=== PATIENT | female | born 1955 | race Caucasian/White ===

== ENCOUNTER 2024-03-09 13:49 | Observation (INO) | payer MEDICARE, SELFPAY ==
[2024-03-09] VITALS (9 sets, daily range): BP systolic 117–153; BP diastolic 75–113; PULSE 79–102; RESP 13–22; TEMP 35.8–36.8; O2SAT 97–100; BMI 22.8; BMI 21.8
--- NOTE | 2024-03-09 14:23 | EKG12_ITS ---
Test Reason : CP Blood Pressure : / mmHG Vent. Rate : 090 BPM Atrial Rate : 090 BPM P-R Int : 164 ms QRS Dur : 080 ms QT Int : 370 ms P-R-T Axes : 061 009 043 degrees QTc Int : 452 ms Normal sinus rhythm Low voltage QRS Borderline ECG Confirmed by JUDITH LEMUS, TODD ([id number]), make up editor WESLY CEJA ([id number]) on 03/11/2024 8:13:33 AM Referred By: David Brown Confirmed By:TODD WONG MD
--- NOTE | 2024-03-09 15:15 | RAD_ITS ---
INDICATION: chest pain EXAMINATION/TECHNIQUE: X-RAY - XR Chest 1 View COMPARISON: No relevant prior comparison study available FINDINGS: LINES/DEVICES: None. LUNGS: No consolidation, edema or effusion. No pneumothorax. MEDIASTINUM AND CARDIOVASCULAR STRUCTURES: Cardiac silhouette not enlarged. Central airways and mediastinal contour are unremarkable. BONES AND SOFT TISSUES: Unremarkable. RAD/Chest 1 View (Portable) IMPRESSION: No radiographic evidence of acute cardiopulmonary disease. Electronically Signed: Thom Scott MD at 15:29 EDT ,
[2024-03-09] MEDS: Morphine 4 MG/ML Syringe 2 MG IV (15:17)
[2024-03-09] MEDS: Ondansetron 4 MG/2 ML Vial IV (15:17)
[2024-03-09 15:20] LABS: Absolute Lymphocyte Count 1.17 X10^3/uL (0.83-4.51); Absolute Neutrophil Count 7.4 X10^3/uL (2.0-7.7); Basophil# 0.05 X10^3/uL; Basophil% 0.5 % (0-1); Eosinophil# 0.09 X10^3/uL; Hematocrit 36.6 % (37-47); Hemoglobin 11.5 g/dL (12.0-15.0); Lymphocyte # 1.17 X10^3/ul (0.83-4.51); Lymphocyte % 12.7 % (19-41); Mean Corp Hgb Conc 31.4 g/dL (32-36); Mean Corpuscular Hgb 27.8 pg (27.0-32.0); Mean Corpuscular Volume 88.4 fL (81-99); Mean Platelet Vol. 8.6 fl (6.2-12.0); Monocyte# 0.47 X10^3/uL; Monocyte% 5.1 % (0-10); NRBC Flagged by Analyzer 0 % (0-5); Neutrophil # 7.43 X10^3/uL (2.7-7.7); Neutrophil % 80.4 % (47-70); Platelet Count 171 K/mm3 (150-450); RBC Distribution Width CV 14.4 % (11.6-14.6); RBC Distribution Width SD 46.6 fl (35.1-43.9); Red Blood Count 4.14 M/mm3 (4.2-5.4); White Blood Count 9.2 K/mm3 (4.4-11.0)
[2024-03-09 15:39] LABS: Anion Gap 6 (5-15); BUN 17 mg/dL (7-18); BUN/Creat Ratio 15.7 RATIO (10-20); Calcium,Total 9.1 mg/dL (8.5-10.1); Chloride 109 mmol/L (98-107); Creatinine, Serum 1.08 mg/dL (0.55-1.02); EST Glomerular Filtration Rate 54 mL/min (>60); Est Glom Filt Rate - Afr Amer 65 mL/min (>60); Estimated Creatinine Clearance 49.83 ml/min; Glucose 158 mg/dL (74-106); Potassium 4.1 mmol/L (3.5-5.1); Sodium Level 140 mmol/L (136-145); Troponin-I HS (w/2H Reflex) 4 pg/mL (3.0-54.0)
[2024-03-09] MEDS: Morphine 2 MG/ML Syringe IV (15:52)
--- NOTE | 2024-03-09 16:03 | CT_ITS ---
INDICATION: Dissection/PE, chest pain EXAMINATION: CTA CHEST, ABDOMEN AND PELVIS WITH CONTRAST - TECHNIQUE: A CTA of the chest, abdomen, and pelvis is obtained with sagittal and coronal reconstructed MIP views. Three-dimensional surface rendered sequence of the thoracic and abdominal aorta was obtained. The protocol utilizes one or more of the following dose reduction techniques: automated exposure control, adjustment of mA and/or kV according to patient size,and/or use of iterative reconstruction technique. 100 mL of Isovue-370. Oral contrast: None. RADIATION DOSAGE (If Supplied By Facility): CTDIvol = ( 11.37 ) mGy, DLP = ( 759.45 ) mGycm COMPARISON: No relevant prior comparison study available FINDINGS: CT CHEST: THORACIC AORTA: No atheromatous disease, no aneurysmal changes or dissection. ABDOMINAL AORTA: No aneurysm or dissection. No significant atheromatous disease. The iliac arteries are unremarkable. LUNGS: There is minimal lower lobe dependent atelectasis. No effusions or pneumothorax. MEDIASTINUM: The thyroid gland is normal. No mediastinal or hilar adenopathy. HEART: Heart is normal size. There is a pericardial effusion measuring up to 13.5 mm in diameter. No coronary artery calcifications. CT ABDOMEN AND PELVIS: LIVER: The liver enhances homogeneously. No masses identified. GALLBLADDER: There are surgical clips within the gallbladder fossa consistent with prior old appendectomy. SPLEEN: Normal. PANCREAS: No masses or inflammation. ADRENAL GLANDS: Normal. KIDNEYS AND URETERS: The kidneys both enhance appropriately. There are normal size and shape. No hydronephrosis or nephrolithiasis. No renal masses or cysts. STOMACH: Normal. SMALL BOWEL: No abnormal distention of the small bowel. MESENTERY: No mesenteric inflammation. No ascites. COLON: There are diverticula arising from the colon The colon otherwise is normal. There is a large fatty ileocecal valve. APPENDIX: There is nonvisualization of the appendix. IVC: Normal. RETROPERITONEUM: No retroperitoneal lymphadenopathy. PELVIC STRUCTURES: Normal bladder. SOFT TISSUES ABDOMEN: The anterior abdominal wall is normal. SOFT TISSUE CHEST: The extrathoracic soft tissues are normal. BONES: There are degenerative changes of the thoracic and lumbar spine. CT/CTA Chst, Abd, Pel W and/or WO IMPRESSION: No evidence of an aortic dissection or pulmonary embolus. Pericardial effusion. Colonic diverticulosis. Electronically Signed: Porsche Herrera MD at 16:43 EDT ,
[2024-03-09 16:04] LABS: D-Dimer Quantitative (DVT/PE) 0.33 FEU/ug/m (0.27-0.49)
[2024-03-09 16:10] LABS: International Normalized Ratio 2.3; Prothrombin Time (Protime)PT. 25.4 SECONDS (11.7-14.9)
[2024-03-09 16:11] LABS: Partial Thromboplast Time 33.2 Seconds (24.1-36.2)
[2024-03-09] MEDS: 0.9% Normal Saline (1000mL) 1,000 ML 999 ML IV (16:39)
--- NOTE | 2024-03-09 17:03 | EDS_ITS ---
HPI History of Present Illness Chief Complaint: Chest Pain Narrative Narrative: Chief complaint and HPI: Chest pain. 68-year-old female with history of PE on Eliquis presents for evaluation of chest pain. Patient states yesterday she developed some midsternal chest pain that resolved. She states she woke up and chest pain had reoccurred. She told nursing that it was sharp and radiated to the back however to me she states it is midsternal only and described as pressure. She does describe it as severe and a 10 out of 10. Pain does not change with position. She states that she has had pain like this in the past. She states she was previously admitted to [facility] for this and she believes had a cardiac catheterization at that time. She does not remember how long ago that was. She states as far as she knows the cardiac cath was negative. She does not follow with cardiology. Pain does not radiate down her arms or into the jaw. She denies any fever, chills, URI symptoms, shortness of breath, abdominal pain, nausea, vomiting, dysuria. Patient was given 2 nitro by EMS without improvement in her symptoms. She is allergic to aspirin per her report. Patient states she has not missed any doses of her Eliquis. Denies recent trauma or surgery. Not on any hormonal therapy. She denies any bilateral lower extremity swelling. No history of malignancy or travel. Review of systems: See HPI Medications: As listed on the chart Allergies: As listed on the chart PFSH: Per chart Vital signs: As listed on the chart. Reviewed. Physical exam: Gen: A&O x3, NAD despite her pain, very flat affect Head: Normocephalic, atraumatic Eyes: No sclera icterus, conjunctiva clear, PERRL, EOMI ENT: Moist mucous membranes Neck: Trachea midline, No JVD, No carotid bruit CV: RRR, no murmurs, no peripheral edema, chest pain nonreproducible Resp: Lungs CTA BL, no w/r/c GI: Abd soft, non-distended, non-tender, no r/r/g Musc: Full ROM, no deformity Skin: Warm, dry Neuro: Alert, oriented, grossly intact, sensation intact Psych: Cooperative EKG: Interpreted by me/EM physician: EKG shows normal sinus rhythm with a heart rate of 98. No acute ischemic changes. Diagnostic: Interpreted by me/EM physician: 1 view chest x-ray without any pneumonia or effusion. No cardiomegaly. No enlargement of the mediastinum. No pneumothorax. [facility] Medical History (Updated 03/09/24 @ 14:00 by Julienne Morales) Hyperlipidemia Muscle weakness Depression Atherosclerotic heart disease of [place] coronary artery without angina pectoris Auditory hallucination Visual hallucination Schizoaffective disorder, bipolar type Psychotic disorder Anxiety GERD (gastroesophageal reflux disease) Allergy/AdvReac Type Severity Reaction Status Date / Time acetaminophen (From Vicodin) Allergy Other Verified 03/09/24 13:53 hydrocodone (From Vicodin) Allergy Other Verified 03/09/24 13:53 lidocaine Allergy Hives Verified 03/09/24 13:53 meperidine (From Demerol) Allergy Hives Verified 03/09/24 13:52 Opioids - Morphine Analogues Allergy Chest Verified 03/09/24 13:53 tightness Social History Smoking Status: Never smoker EXAM Physical Exam Const Vital Signs: 03/09/24 13:54 03/09/24 13:57 03/09/24 14:45 Temperature 96.5 F L Temperature Source Temporal Pulse Rate 91 102 H Respiratory Rate 14 13 Respiratory Effort Normal Non-Labored Blood Pressure 117/75 127/113 H Blood Pressure Mean 89 120 Pulse Ox 99 97 Oxygen Delivery Method Room Air 03/09/24 15:57 03/09/24 16:00 03/09/24 17:00 Temperature Temperature Source Pulse Rate 81 84 100 Respiratory Rate 14 22 H 16 Respiratory Effort Blood Pressure 137/78 H 153/82 H Blood Pressure Mean 95 102 Pulse Ox 98 Oxygen Delivery Method MDM MDM MDM Narrative Medical decision making narrative: 68-year-old female with history of PE on Eliquis presents for evaluation of chest pain. On presentation, patient is in no acute distress despite her reported severe pain. Patient without tachycardia, hypotension, hypoxia. Differential diagnosis includes but is not limited to ACS, CHF, electrolyte abnormality, pleurisy, musculoskeletal strain. I suspect less likely PE given that she has been on her Eliquis. Less likely pneumothorax and pericarditis. Low risk for aortic dissection per ADD-RS. Morphine given for pain. Will hold off on aspirin given patient's allergy. Cardiac workup ordered including D- dimer. EKG without any acute abnormality. Chest x-ray reviewed see above. CBC without leukocytosis. Patient has anemia with hemoglobin 11.5. INR 2.3. BMP shows mild renal insufficiency. I do not have previous labs to compare to. I did do a chart review on our system as well as get on [facility] and again no records available. Troponin unremarkable. BNP unremarkable. D-dimer unremarkable. On reevaluation, patient is still complaining out of 10 out of 10 chest pain. She describes it as midsternal. She now describes as sharp and radiating to her back given these findings cannot fully rule out aortic dissection. Morphine ordered. CTA ordered to assess for aortic dissection/PE. On presentation she is in no acute distress on presentation. CTA shows no ev idence of aortic dissection or PE. She does have a 13.5 mm pericardial effusion. I do not have a clear etiology for this. Repeat EKG again is unremarkable. Cardiology was consulted and patient was discussed with Dr. Watkins. He recommends ESR and admission for echocardiogram for better evaluation of possible pericardial effusion given patient is still having chest pain. Delta troponin and ESR currently pending. Patient was updated of all the results and confirmed understanding of the plan. Hospitalist service Dr. Baca was consulted and patient was discussed. He excepted admission. Impression: 1. Chest pain 2. Pericardial effusion 3. Anemia 4. Renal insufficiency Lab Data Labs: Laboratory Results - last 24 hr 03/09/24 03/09/24 15:10 15:40 WBC 9.2 RBC 4.14 L Hgb 11.5 L Hct 36.6 L MCV 88.4 MCH 27.8 MCHC 31.4 L RDW Std Deviation 46.6 H RDW Coeff of Reinaldo 14.4 Plt Count 171 MPV 8.6 Immature Gran % (Auto) 0.300 Neut % (Auto) 80.4 H Lymph % (Auto) 12.7 L [place] % (Auto) 5.1 Eos % (Auto) 1.0 Baso % (Auto) 0.5 Absolute Neuts (auto) 7.4 Absolute Lymphs (auto) 1.17 Nucleated RBC % 0 PT Cancelled 25.4 H INR Cancelled 2.3 APTT Cancelled 33.2 D-Dimer Quant (PE/DVT) Cancelled 0.33 Sodium 140 Potassium 4.1 Chloride 109 H Carbon Dioxide 25.0 Anion Gap 6 BUN 17 Creatinine 1.08 H Estim Creat Clear Calc 49.83 Est GFR (MDRD) Af Amer 65 Est GFR (MDRD) Non-Af 54 L BUN/Creatinine Ratio 15.7 Glucose 158 H Calcium 9.1 Troponin I High Sens 4 B-Natriuretic Peptide 21.0 Radiography Diagnostic Testing: Clinical Impression(s) from Imaging Studies Chest X-Ray 03/09/24 15:15 IMPRESSION: No radiographic evidence of acute cardiopulmonary disease. Electronically Signed: Thom Scott MD at 15:29 EDT , Chest/Abdomen/Pelvis CTA 03/09/24 16:03 IMPRESSION: No evidence of an aortic dissection or pulmonary embolus. Pericardial effusion. Colonic diverticulosis. Electronically Signed: Porsche Herrera MD at 16:43 EDT , Discharge Plan Triage Chief Complaint: Chest Pain ED Provider: David Brown Dx/Rx/DC Orders Primary Care Provider: [facility] Referrals: Jamila Castellon MD [Med Staff - Human Resources Department Supervisor] - Print Language: Vietnamese
[2024-03-09 17:18] LABS: Reflex Troponin-HS? (from REC) Y
[2024-03-09 18:18] LABS: Troponin-I HS 4 pg/mL (3.0-54.0)
--- NOTE | 2024-03-09 18:48 | PCM.HP.STD ---
HPI - General General Date of Admission: 03/09/24 HPI Narrative JESSICA DENNIS, is a 68 F who presents to the hospital complaining of chest pain that is progressively gotten worse over the last couple days. She says it goes straight to her back and is substernal midline. There is no radiation to her jaw or her arm. Initial troponin is normal at 4 and EKG is nonischemic however given the radiation of her pain into her back a CTA of the chest was done which was unremarkable and did not demonstrate any kind of dissection. Delta troponin is also negative at 4 and the CTA I had also demonstrated a pericardial effusion though she denies any recent viral illness and she states that nothing makes the pain better or worse. She does not feel that leaning forward makes the pain any better. No lightheadedness but she does endorse some mild shortness of breath though she is not hypoxic. COUNT INCLUDES THE [facility] Medical History (Updated 03/09/24 @ 18:[address] Jose Baca MD) Hyperlipidemia Muscle weakness Depression Atherosclerotic heart disease of [place] coronary artery without angina pectoris Auditory hallucination Visual hallucination Schizoaffective disorder, bipolar type Psychotic disorder Anxiety GERD (gastroesophageal reflux disease) Home Medications ?Medication ?Instructions ?Recorded ?Last Taken ?Type amitriptyline 50 mg tablet 50 - 100 mg PO QHS 03/09/24 03/08/24 History buspirone 10 mg tablet 10 mg PO BID anxiety 03/09/24 03/09/24 History rivaroxaban 20 mg tablet (Xarelto) 20 mg PO QPM 03/09/24 03/08/24 History ropinirole 3 mg tablet 3 mg PO QHS 03/09/24 03/08/24 History Allergy/AdvReac Type Severity Reaction Status Date / Time acetaminophen (From Vicodin) Allergy Other Verified 03/09/24 13:53 hydrocodone (From Vicodin) Allergy Other Verified 03/09/24 13:53 lidocaine Allergy Hives Verified 03/09/24 13:53 meperidine (From Demerol) Allergy Hives Verified 03/09/24 13:52 Opioids - Morphine Analogues Allergy Chest Verified 03/09/24 13:53 tightness Family History (Updated 03/09/24 @ 18:[address] Jose Baca MD) Other Heart disease Social History Smoking Status: Never smoker ROS Constitutional Constitutional: Denies chills, fatigue, fever(s) or malaise Eyes Eyes: Denies blurry vision ENT HEENT: Denies headache(s) or nasal discharge Cardiovascular Cardiovascular: Reports chest pain; Denies dyspnea on exertion or syncope Respiratory/Chest Respiratory/Chest: Reports shortness of breath at rest and shortness of breath with exertion; Denies cough Gastrointestinal Gastrointestinal: Denies constipation, diarrhea, nausea or vomiting Genitourinary Genitourinary: Denies dysuria Neurologic Neurologic: Denies focal weakness, numbness or tremor(s) Psychiatric Psychiatric: Denies anxiety or depression Vital Signs Vital Signs Vital Signs: 03/09/24 13:54 03/09/24 13:57 03/09/24 14:45 Temperature 96.5 F L Temperature Source Temporal Pulse Rate 91 102 H Respiratory Rate 14 13 Respiratory Effort Normal Non-Labored Blood Pressure 117/75 127/113 H Blood Pressure Mean 89 120 Pulse Ox 99 97 Oxygen Delivery Method Room Air 03/09/24 15:57 03/09/24 16:00 03/09/24 17:00 Temperature Temperature Source Pulse Rate 81 84 100 Respiratory Rate 14 22 H 16 Respiratory Effort Blood Pressure 137/78 H 153/82 H Blood Pressure Mean 95 102 Pulse Ox 98 Oxygen Delivery Method 03/09/24 18:00 03/09/24 18:03 Temperature 96.5 F L Temperature Source Pulse Rate 101 H 100 Respiratory Rate 18 14 Respiratory Effort Blood Pressure 138/82 H Blood Pressure Mean 100 Pulse Ox 98 98 Oxygen Delivery Method Weight Weight: 146 lb 2.664 oz Body Mass Index (BMI) 22.8 Physical Exam Narrative General: Alert, Oriented x3, Cooperative, No apparent distress HEENT: Atraumatic, PERRLA, EOMI, Normocephalic Oral: Moist Mucosa Neck: Supple, No JVD Lungs: Diminished, Normal air movement, No rhonchi, No wheeze, No rales Cardiovascular: Regular rate, Regular Rhythm, Normal S1, Normal S2, No murmurs Abdomen: Soft, Non Tender, Non-Distended, No Hepato-splenomegaly Extremities: No edema, Capillary Refill Less than 3 Seconds Skin: No rashes, No breakdown Musculoskeletal: No Tenderness to Palpation of Joints or Extremities Neurological: No focal neurological deficits, Motor Exam 5/5 strength throughout, Sensory exam intact to light touch and pain Psych/Mental Status: Flat Results Lab / Micro Data 03/09/24 15:10 03/09/24 15:10 Labs: Laboratory Results - last 24 hr 03/09/24 15:10: WBC 9.2, RBC 4.14 L, Hgb 11.5 L, Hct 36.6 L, MCV 88.4, MCH 27.8, MCHC 31.4 L, RDW Std Deviation 46.6 H, RDW Coeff of Reinaldo 14.4, Plt Count 171, MPV 8.6, Immature Gran % (Auto) 0.300, Neut % (Auto) 80.4 H, Lymph % (Auto) 12.7 L, [place] % (Auto) 5.1, Eos % (Auto) 1.0, Baso % (Auto) 0.5, Absolute Neuts (auto) 7.4, Absolute Lymphs (auto) 1.17, Nucleated RBC % 0, ESR Cancelled, PT Cancelled, INR Cancelled, APTT Cancelled, D-Dimer Quant (PE/DVT) Cancelled, Sodium 140, Potassium 4.1, Chloride 109 H, Carbon Dioxide 25.0, Anion Gap 6, BUN 17, Creatinine 1.08 H, Estim Creat Clear Calc 49.83, Est GFR (MDRD) Af Amer 65, Est GFR (MDRD) Non-Af 54 L, BUN/Creatinine Ratio 15.7, Glucose 158 H, Calcium 9.1, Troponin I High Sens 4, B-Natriuretic Peptide 21.0 03/09/24 15:40: PT 25.4 H, INR 2.3, APTT 33.2, D-Dimer Quant (PE/DVT) 0.33 03/09/24 17:30: Troponin I High Sens 4 Imaging Radiology Impression Chest X-Ray 03/09/24 15:15 IMPRESSION: No radiographic evidence of acute cardiopulmonary disease. Electronically Signed: Thom Scott MD at 15:29 EDT , Chest/Abdomen/Pelvis CTA 03/09/24 16:03 IMPRESSION: No evidence of an aortic dissection or pulmonary embolus. Pericardial effusion. Colonic diverticulosis. Electronically Signed: Porsche Herrera MD at 16:43 EDT , Assessment & Plan Assessment/Plan (1) Chest pain: PLAN: Plan 1. Chest pain ? Unclear as to the etiology at this time however CTA demonstrates pericardial effusion ? EKG is nonischemic with negative delta troponin though there is family history of heart disease. ? Will obtain an echocardiogram however her heart score is only 3 so a stress test has not been ordered ? An ESR is pending 2. 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 Continue with Xarelto 3. Schizoaffective disorder bipolar type with history of hallucinations ? She is on amitriptyline as well as BuSpar ? She also thought that she may have been on Seroquel ? She does have a very flat affect which given her past psychiatric issues is likely medication related DVT: Xarelto 75 minutes was spent on direct patient care, including documentation as well as chart review and collaboration with colleagues Charges/Coding Visit Charges Inpatient E&M: 35780 Init Hosp L3
[2024-03-09 19:16] LABS: Erythrocyte Sedimentation Rate 3 mm/hr (0-30)
--- NOTE | 2024-03-09 19:34 | ECHOD_ITS ---
Reason For Study: Pericardial effusion Procedure This was a 2D Doppler, Color Flow transthoracic echocardiogram. Exam performed portable in patient room. Left Ventricle Normal LV size. The estimated ejection fraction is 70 %. No evidence for diastolic dysfunction. No regional wall motion abnormalities noted. Right Ventricle Normal RV size. Normal systolic function. Atria The left and right atria are normal. No doppler evidence for ASD. Mitral Valve There is mild mitral annular calcification. There is no mitral valve stenosis. No mitral valve insufficiency. Tricuspid Valve There is no tricuspid stenosis. Trivial tricuspid valve insufficiency. Pulmonary artery systolic pressure is 25 mmHg. Aortic Valve Trisinus/trileaflet aortic valve. There is no aortic stenosis. Trivial aortic valve insufficiency. Pulmonic Valve There is no pulmonic valvular stenosis. No pulmonic valve insufficiency. Great Vessels Normal aortic root. Pericardium/Pleural Moderate pericardial effusion. There are no echocardiographic indications of cardiac tamponade. Fibrinous strands. MMode/2D Measurements & Calculations LVIDd: 3.5 cm IVSd: 1.0 cm Ao root diam: 2.8 cm LVIDs: 1.9 cm LVPWd: 0.97 cm RVDd: 3.2 cm FS: 46.2 % LAV(MOD-bp): 35.4 ml LVAd ap4: 21.3 cm2 SV(MOD-sp4): 34.0 ml LAV(MOD-bp) Indexed: 20.0 ml/m2 LVLd ap4: 7.5 cm LAV(MOD-sp2): 24.8 ml EDV(MOD-sp4): 49.3 ml LAV(MOD-sp4): 47.8 ml EDV(sp4-el): 50.9 ml LVAs ap4: 9.8 cm2 LVLs ap4: 5.8 cm ESV(MOD-sp4): 15.3 ml ESV(sp4-el): 14.3 ml EF(MOD-sp4): 69.0 % EF(sp4-el): 71.9 % SV(sp4-el): 36.6 ml LA A4 area: 17.8 cm2 LA dimension(2D): 3.0 cm RA A4 area: 11.5 cm2 TAPSE: 2.0 cm Time Measurements MV dec time: 0.27 sec Doppler Measurements & Calculations MV E max luigi: 86.8 cm/sec Lat Peak E' Luigi: 8.0 cm/sec Med Peak E' Luigi: 6.5 cm/sec MV A max luigi: 119.0 cm/sec E/E' lat: 10.8 E/E' med: 13.3 MV E/A: 0.73 Ao V2 max: 144.6 cm/sec LV V1 max: 111.5 cm/sec MV dec slope: 321.5 cm/sec2 Ao max P.4 mmHg LV V1 max P.0 mmHg Ao V2 mean: 96.1 cm/sec LV V1 mean P.9 mmHg Ao mean P.2 mmHg LV V1 mean: 79.4 cm/sec Ao V2 VTI: 27.8 cm LV V1 VTI: 22.7 cm AV (velocity ratio): 0.82 PA V2 max: 87.1 cm/sec TR max luigi: 220.9 cm/sec TR max P.5 mmHg ECHO/Echo Complete Interpretation Summary The estimated ejection fraction is 70 %. No evidence for diastolic dysfunction. Trivial aortic valve insufficiency. Moderate pericardial effusion. Echodensity in the pericardial effusion is suggestive of hemorrhagic effusion Ordering Physician: Jose Baca Referring Physician: David Brown Performed By: Makayla Taylor RDCS
[2024-03-09] MEDS: Rivaroxaban 20 MG Tablet PO (20:37)
[2024-03-09] MEDS: busPIRone 5 MG Tablet 10 MG PO (20:39)
[2024-03-09] MEDS: Pramipexole Di-HCl 0.5 MG Tablet 1.5 MG PO (20:39)
[2024-03-09] MEDS: Amitriptyline 25 MG Tablet PO (20:40)
[2024-03-09] MEDS: proMETHazine 25 MG/ML Syringe 12.5 MG IM (23:49)
[2024-03-09] MEDS: Ketorolac 15 MG/ML Vial IV (23:49)
[2024-03-10 00:14] LABS: Troponin-I HS 5 pg/mL (3.0-54.0)
[2024-03-10 01:05] VITALS: BP 141/76; PULSE 84; RESP 16; TEMP 36.7; O2SAT 97
--- NOTE | 2024-03-10 03:43 | NURSING ---
PT AWAKE, C/O CP AGAIN 03/07, WILL NOTIFY THE HOSPITALIST
[2024-03-10] MEDS: Mag /Aluminum/Simeth WCH UDC 30 ML ORAL.SUSP PO (06:05)
[2024-03-10] MEDS: Lidocaine 2% Viscous15 ML UDC 15 ML PO (06:05)
--- NOTE | 2024-03-10 08:13 | PCM.PN.HOSP ---
Reason for Visit Reason for Visit: Diagnoses Chest pain, unspecified (03/09/24) Objective Data Objective Data Vital Signs: Vital Signs Temp Pulse Resp BP Pulse Ox O2 Del Method 98.1 F 84 16 141/76 H 97 Room Air 03/10/24 01:05 03/10/24 01:05 03/10/24 01:05 03/10/24 01:05 03/10/24 01:05 03/10/24 01:05 Oxygen Delivery Method Room Air Weight: 139 lb 5.314 oz Body Mass Index (BMI) 21.8 Intake & Output: Intake and Output for Last 24 Hours 03/08/24 03/09/24 03/10/24 23:59 23:59 23:59 Intake Total 1000 / 1200 200 / 200 Balance 1000 / 1200 200 / 200 Lab / Micro Data 03/10/24 09:15 03/10/24 09:15 Labs: Laboratory Results - last 24 hr 03/09/24 15:10: WBC 9.2, RBC 4.14 L, Hgb 11.5 L, Hct 36.6 L, MCV 88.4, MCH 27.8, MCHC 31.4 L, RDW Std Deviation 46.6 H, RDW Coeff of Reinaldo 14.4, Plt Count 171, MPV 8.6, Immature Gran % (Auto) 0.300, Neut % (Auto) 80.4 H, Lymph % (Auto) 12.7 L, [place] % (Auto) 5.1, Eos % (Auto) 1.0, Baso % (Auto) 0.5, Absolute Neuts (auto) 7.4, Absolute Lymphs (auto) 1.17, Nucleated RBC % 0, ESR Cancelled, PT Cancelled, INR Cancelled, APTT Cancelled, D-Dimer Quant (PE/DVT) Cancelled, Sodium 140, Potassium 4.1, Chloride 109 H, Carbon Dioxide 25.0, Anion Gap 6, BUN 17, Creatinine 1.08 H, Estim Creat Clear Calc 49.83, Est GFR (MDRD) Af Amer 65, Est GFR (MDRD) Non-Af 54 L, BUN/Creatinine Ratio 15.7, Glucose 158 H, Calcium 9.1, Troponin I High Sens 4, B-Natriuretic Peptide 21.0 03/09/24 15:40: PT 25.4 H, INR 2.3, APTT 33.2, D-Dimer Quant (PE/DVT) 0.33 03/09/24 17:30: Troponin I High Sens 4 03/09/24 17:45: ESR 3 03/09/24 23:50: Troponin I High Sens 5 Radiography Diagnostic Testing: Radiology Impression Chest X-Ray 03/09/24 15:15 IMPRESSION: No radiographic evidence of acute cardiopulmonary disease. Electronically Signed: Thom Scott MD at 15:29 EDT , Chest/Abdomen/Pelvis CTA 03/09/24 16:03 IMPRESSION: No evidence of an aortic dissection or pulmonary embolus. Pericardial effusion. Colonic diverticulosis. Electronically Signed: Porsche Herrera MD at 16:43 EDT , Assessment & Plan Assessment/Plan (1) Chest pain: PLAN: Plan 68-year-old female was admitted with chest pain, 10/10 intensity started on day of admission with radiation to back. Admitted from SNF through ED. 1. Atypical chest pain, unclear etiology ? Unclear as to the etiology at this time however CTA demonstrates pericardial effusion, 13 mm ? EKG is nonischemic with negative delta troponin though there is family history of heart disease. ? 2D echo reported pericardial effusion but no tamponade features. Plant Equipment Engineer consulted. He discussed with other reforestation worker who does not think patient had hemorrhagic pericardial effusion as cannot say from increased density. Patient on Xarelto which is discontinued. Did not have rheumatological disease. ? An ESR is 3. 2. 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 Xarelto discontinued 3. Schizoaffective disorder bipolar type with history of hallucinations ? She is on amitriptyline as well as BuSpar ? She also thought that she may have been on Seroquel ? She does have a very flat affect which given her past psychiatric issues is likely medication related DVT: B/L SCD
[2024-03-10 09:00] VITALS: BP 155/90; PULSE 91; RESP 16; TEMP 36.7; O2SAT 98
[2024-03-10] MEDS: busPIRone 5 MG Tablet 10 MG PO (09:08)
--- NOTE | 2024-03-10 09:27 | CASEMGMT ---
Patient is from [facility]. SW sent updates to [facility] via [facility]. SW also inquired if patient will need a pre-cert to return. Await response. Kyalie DURAN
[2024-03-10 09:29] LABS: Absolute Lymphocyte Count 1.38 X10^3/uL (0.83-4.51); Absolute Neutrophil Count 4.7 X10^3/uL (2.0-7.7); Basophil# 0.06 X10^3/uL; Basophil% 0.9 % (0-1); Eosinophil# 0.16 X10^3/uL; Eosinophils% 2.4 % (0-5); Hematocrit 37.9 % (37-47); Hemoglobin 12.3 g/dL (12.0-15.0); Lymphocyte # 1.38 X10^3/ul (0.83-4.51); Lymphocyte % 20.8 % (19-41); Mean Corp Hgb Conc 32.5 g/dL (32-36); Mean Corpuscular Hgb 27.9 pg (27.0-32.0); Mean Corpuscular Volume 85.9 fL (81-99); Mean Platelet Vol. 8.6 fl (6.2-12.0); Monocyte% 4.5 % (0-10); NRBC Flagged by Analyzer 0 % (0-5); Neutrophil # 4.73 X10^3/uL (2.7-7.7); Neutrophil % 71.1 % (47-70); Platelet Count 225 K/mm3 (150-450); RBC Distribution Width CV 14.2 % (11.6-14.6); Red Blood Count 4.41 M/mm3 (4.2-5.4); White Blood Count 6.7 K/mm3 (4.4-11.0)
[2024-03-10 09:38] LABS: Anion Gap 7 (5-15); BUN 12 mg/dL (7-18); BUN/Creat Ratio 12.9 RATIO (10-20); Calcium,Total 8.9 mg/dL (8.5-10.1); Chloride 110 mmol/L (98-107); Creatinine, Serum 0.93 mg/dL (0.55-1.02); EST Glomerular Filtration Rate 64 mL/min (>60); Est Glom Filt Rate - Afr Amer 78 mL/min (>60); Estimated Creatinine Clearance 57.86 ml/min; Glucose 119 mg/dL (74-106); Potassium 3.7 mmol/L (3.5-5.1); Sodium Level 141 mmol/L (136-145)
[2024-03-10] MEDS: Polyethylene Glycol 3350 17 GM PACKET PO (10:20)
[2024-03-10] MEDS: Senna/Docusate Sodium 1 Tablet 2 TABLET PO (10:20)
--- NOTE | 2024-03-10 10:38 | CASEMGMT ---
No pre-cert is needed for patient to return to [facility]. Plan: d/c back to [facility] behavioral unit. Kaylie Borrego MSW RENEE
[2024-03-10] MEDS: Acetaminophen 500 MG Tablet 1000 MG PO (11:31)
[2024-03-10] MEDS: Ondansetron 4 MG/2 ML Vial IV (13:43)
[2024-03-10] MEDS: FLU VACCINE **HIGH DOSE** TV 24-25 180 MCG/0.5 ML SYRINGE IM (13:46)
--- NOTE | 2024-03-10 15:16 | PCM.CONS.C ---
Assessment & Plan Assessment/Plan (1) Chest pain: QUALIFIERS: Chest pain type: unspecified Qualified Code(s): R07.9 - Chest pain, unspecified PLAN: The patient's chest discomfort does not appear to be cardiac. Her cardiac enzymes are negative her EKG shows no acute ischemic changes and the symptoms are not consistent with angina. Her symptoms are pleuritic in nature. Her sed rate is 3 her BNP is normal CT scan was negative for any pulmonary emboli or dissection. Her physical exam is consistent with bowel sounds heard up into the chest. There was no hiatal hernia documented on her CT of the abdomen and thorax. On the CT there was no coronary calcification documented. This also points against any significant coronary disease. (2) Pericardial effusion: PLAN: Patient's echocardiogram showed a moderate pericardial effusion without any evidence of tamponade. There were strands noted within the effusion. There was no evidence of acute inflammatory issues with the ESR of 3. The patient has been on Xarelto since 2018 due to a pulmonary embolus and DVTs related to the extensive abdominal surgical intervention. I would recommend that Xarelto be discontinued and we reevaluate with a limited echocardiogram in 1 month. She can then be followed up in our office at the [facility] to review the echocardiogram and decide on long-term management of the Xarelto. (3) Psychotic disorder: QUALIFIERS: Psychosis type: schizoaffective disorder Schizoaffective disorder type: unspecified Qualified Code(s): F25.9 - Schizoaffective disorder, unspecified PLAN: During the patient's hospitalization she is told different historical narratives. She actually told me that she lived at home and was ambulatory. Actually she lives in an extended care facility and was transferred here from that extended care facility. This raises the question of how trustworthy her answers concerning her past medical history are. However, given the pericardial effusion I would recommend we discontinue the Xarelto I went over with her what to monitor for a possible DVT recurrence. Will reevaluate her in 1 month in the office with an echocardiogram. Will then follow-up in the office for reevaluation of decision on long-term Xarelto therapy. PLAN: Plan 1. Recommend DC Xarelto given the history as noted above. 2. Repeat limited echo in 1 month to reevaluate pericardial effusion. 3. Patient should be monitored for recurrent DVT and if it recurs Xarelto should be reinstituted. 4. From a cardiovascular standpoint the patient can be discharged in the hospital. 5. Patient will follow-up in the [facility] office in 6 weeks. At that time we will make a decision concerning long-term Xarelto therapy. HPI Consult Data Date of Consult: 03/10/24 HPI Narrative Reason for Consultation: Abnormal 2D echo HPI Narrative: JESSICA DENNIS, is a 68 F who presents with chest pain from [facility]. Patient reports that she been having chest pain for a various amount of times anywhere from 2 days to a month depending on his asking the question. The patient has a history of behavioral health issues. She describes his chest pain to me is lasting for at least 48 hours it changes with a deep breath does not change with change of position does not change with being up and ambulating. The patient had a CT of the chest that was negative for any pulmonary emboli or or dissection. The patient's cardiac isoenzymes troponins were 4, 4, and 5 for 3 sets. The BNP was normal at 21 her D-dimer was negative at 0.33 and the patient's sed rate was 3. The patient has been hemodynamically stable throughout her stay in the hospital. Her EKG showed a normal sinus rhythm at 94 bpm low voltage and borderline. She had sequential EKGs that showed no significant changes. The patient had an echocardiogram which showed normal LV function no wall motion abnormalities but she did have a pericardial effusion with strands noted in the effusion. There was no evidence of pericardial tamponade. The patient has been on Xarelto since 2018. The patient reports to me that Xarelto was started due to a pulmonary embolus after a major abdominal surgery where she was laid up for a long period of time she had DVTs that progressed to the pulmonary embolus. She was treated with Xarelto in 2018 that physician retired and her medication has been continued. She has no documented hypercoagulable state and has had no other events. Currently the patient denies any shortness of breath PND orthopnea. She has no lower extremity edema. [facility] Medical History (Updated 03/10/24 @ 15:[address] Xu He MD) Hyperlipidemia Muscle weakness Depression Atherosclerotic heart disease of [place] coronary artery without angina pectoris Auditory hallucination Visual hallucination Schizoaffective disorder, bipolar type Psychotic disorder Anxiety GERD (gastroesophageal reflux disease) Home Medications ?Medication ?Instructions ?Recorded ?Last Taken ?Type amitriptyline 50 mg tablet 50 - 100 mg PO QHS 03/09/24 03/08/24 History buspirone 10 mg tablet 10 mg PO BID anxiety 03/09/24 03/09/24 History ropinirole 3 mg tablet 3 mg PO QHS 03/09/24 03/08/24 History sennosides 8.6 mg-docusate sodium 2 tab PO BID #0 tabs 03/10/24 Unknown Rx 50 mg tablet (Stimulant Laxative Plus) Allergy/AdvReac Type Severity Reaction Status Date / Time acetaminophen (From Vicodin) Allergy Other Verified 03/09/24 13:53 hydrocodone (From Vicodin) Allergy Other Verified 03/09/24 13:53 lidocaine Allergy Hives Verified 03/09/24 13:53 meperidine (From Demerol) Allergy Hives Verified 03/09/24 13:52 Opioids - Morphine Analogues Allergy Chest Verified 03/09/24 13:53 tightness Family History Other Heart disease Social History Smoking Status: Never smoker ROS Constitutional Constitutional: Reports as per HPI Eyes Eyes: Reports systems reviewed and no addt'l complaints, except as documented ENT HEENT: Reports systems reviewed and no addt'l complaints, except as documented Cardiovascular Cardiovascular: Reports as per HPI Respiratory/Chest Respiratory/Chest: Reports as per HPI Gastrointestinal Gastrointestinal: Reports as per HPI Genitourinary Genitourinary: Reports systems reviewed and no addt'l complaints, except as documented Musculoskeletal Musculoskeletal: Reports as per HPI Integumentary Integumentary: Reports systems reviewed and no addt'l complaints, except as documented Neurologic Neurologic: Reports as per HPI Psychiatric Psychiatric: Reports as per HPI Endocrine Endocrinology: Reports systems reviewed and no addt'l complaints, except as documented Hematologic/Lymphatic Hematologic/Lymphatic: Reports systems reviewed and no addt'l complaints, except as documented Allergic/Immunologic Allergic/Immunologic: Reports systems reviewed and no addt'l complaints, except as documented Physical Exam Const alert and oriented x3 HEENT normocephalic Eyes EOMs intact bilaterally Neck no JVD Carotids: Negative for bruit Chest inspection of chest normal Resp normal respiratory effort and clear to auscultation bilaterally Resp Narrative: Bowel sounds are auscultated up into the midsternal area. Cardio regular rate, regular rhythm, S1 normal heart sound, S2 normal heart sound, no murmurs, no rub and no gallops GI normal to inspection, nondistended, normoactive bowel sounds and no bruits Extremity no calf tenderness and no pedal edema Skin no rashes or lesions noted Neuro Neuro Narrative: Alert and oriented x 3. However she gives me different answers to her history tell me that she lives at home when she actually lives in an extended care facility. Psych Psych Narrative: Patient carries a history of schizoaffective disorder. Risk Stratification Risk Stratification Applicable: Yes Age >/= 65: Yes >/= 3 CAD Risk Factors (HTN, HLD, DM, family hx of CAD, or current smoker): No Aspirin Use in the Past 7 Days: No Severe Angina (>/= episodes in 24 hours): No EKG ST Changes >/= 0.5mm: No Positive Cardiac Marker: No WILTON Risk Stratification Score: 1 WILTON % Risk: 5% Risk Charges/Coding Visit Charges Inpatient E&M: 68179 Init Hosp L3 Objective Data Vital Signs: Vital Signs Temp Pulse Resp BP Pulse Ox O2 Del Method 98.1 F 91 16 155/90 H 98 Room Air 03/10/24 09:00 03/10/24 09:00 03/10/24 09:00 03/10/24 09:00 03/10/24 09:00 03/10/24 09:19 Oxygen Delivery Method Room Air Weight: 139 lb 5.314 oz Body Mass Index (BMI) 21.8 Intake & Output: Intake and Output for Last 24 Hours 03/08/24 03/09/24 03/10/24 23:59 23:59 23:59 Intake Total 1000 / 1200 200 / 200 Balance 1000 / 1200 200 / 200 Lab / Micro Data Attestation: I reviewed the patient's lab results. 03/10/24 09:15 03/10/24 09:15 Labs: Laboratory Results - last 24 hr 03/09/24 15:10: WBC 9.2, RBC 4.14 L, Hgb 11.5 L, Hct 36.6 L, MCV 88.4, MCH 27.8, MCHC 31.4 L, RDW Std Deviation 46.6 H, RDW Coeff of Reinaldo 14.4, Plt Count 171, MPV 8.6, Immature Gran % (Auto) 0.300, Neut % (Auto) 80.4 H, Lymph % (Auto) 12.7 L, [place]idalgo % (Auto) 5.1, Eos % (Auto) 1.0, Baso % (Auto) 0.5, Absolute Neuts (auto) 7.4, Absolute Lymphs (auto) 1.17, Nucleated RBC % 0, ESR Cancelled, PT Cancelled, INR Cancelled, APTT Cancelled, D-Dimer Quant (PE/DVT) Cancelled, Sodium 140, Potassium 4.1, Chloride 109 H, Carbon Dioxide 25.0, Anion Gap 6, BUN 17, Creatinine 1.08 H, Estim Creat Clear Calc 49.83, Est GFR (MDRD) Af Amer 65, Est GFR (MDRD) Non-Af 54 L, BUN/Creatinine Ratio 15.7, Glucose 158 H, Calcium 9.1, Troponin I High Sens 4, B-Natriuretic Peptide 21.0 03/09/24 15:40: PT 25.4 H, INR 2.3, APTT 33.2, D-Dimer Quant (PE/DVT) 0.33 03/09/24 17:30: Troponin I High Sens 4 03/09/24 17:45: ESR 3 03/09/24 23:50: Troponin I High Sens 5 03/10/24 09:15: WBC 6.7, RBC 4.41, Hgb 12.3, Hct 37.9, MCV 85.9, MCH 27.9, MCHC 32.5, RDW Std Deviation 45.0 H, RDW Coeff of Reinaldo 14.2, Plt Count 225, MPV 8.6, Immature Gran % (Auto) 0.300, Neut % (Auto) 71.1 H, Lymph % (Auto) 20.8, [place] % (Auto) 4.5, Eos % (Auto) 2.4, Baso % (Auto) 0.9, Absolute Neuts (auto) 4.7, Absolute Lymphs (auto) 1.38, Nucleated RBC % 0, Sodium 141, Potassium 3.7, Chloride 110 H, Carbon Dioxide 24.0, Anion Gap 7, BUN 12, Creatinine 0.93, Estim Creat Clear Calc 57.86, Est GFR (MDRD) Af Amer 78, Est GFR (MDRD) Non-Af 64, BUN/Creatinine Ratio 12.9, Glucose 119 H, Calcium 8.9 Cardiology Labs/Tests 03/09/24 15:10: WBC 9.2, RBC 4.14 L, Hgb 11.5 L, Hct 36.6 L, MCV 88.4, MCH 27.8, MCHC 31.4 L, Plt Count 171, MPV 8.6, Immature Gran % (Auto) 0.300, Neut % (Auto) 80.4 H, Lymph % (Auto) 12.7 L, [place] % (Auto) 5.1, Eos % (Auto) 1.0, Baso % (Auto) 0.5, Absolute Neuts (auto) 7.4, Nucleated RBC % 0, PT Cancelled, INR Cancelled, APTT Cancelled, D-Dimer Quant (PE/DVT) Cancelled, Sodium 140, Potassium 4.1, Chloride 109 H, Carbon Dioxide 25.0, Anion Gap 6, BUN 17, Creatinine 1.08 H, Est GFR (MDRD) Af Amer 65, Est GFR (MDRD) Non-Af 54 L, BUN/Creatinine Ratio 15.7, Glucose 158 H, Calcium 9.1, B-Natriuretic Peptide 21.0 03/09/24 15:40: PT 25.4 H, INR 2.3, APTT 33.2, D-Dimer Quant (PE/DVT) 0.33 03/10/24 09:15: WBC 6.7, RBC 4.41, Hgb 12.3, Hct 37.9, MCV 85.9, MCH 27.9, MCHC 32.5, Plt Count 225, MPV 8.6, Immature Gran % (Auto) 0.300, Neut % (Auto) 71.1 H, Lymph % (Auto) 20.8, [place] % (Auto) 4.5, Eos % (Auto) 2.4, Baso % (Auto) 0.9, Absolute Neuts (auto) 4.7, Nucleated RBC % 0, Sodium 141, Potassium 3.7, Chloride 110 H, Carbon Dioxide 24.0, Anion Gap 7, BUN 12, Creatinine 0.93, Est GFR (MDRD) Af Amer 78, Est GFR (MDRD) Non-Af 64, BUN/Creatinine Ratio 12.9, Glucose 119 H, Calcium 8.9 Rhythm: EKG: ECHO: Stress Test: Cardiac Cath: PCI: CT Surgery: Holter monitor: EPS: PPM: CXR: Chest CT Scan: Radiography Diagnostic Testing: Radiology Impression Chest X-Ray 03/09/24 15:15 IMPRESSION: No radiographic evidence of acute cardiopulmonary disease. Electronically Signed: Thom Scott MD at 15:29 EDT , Chest/Abdomen/Pelvis CTA 03/09/24 16:03 IMPRESSION: No evidence of an aortic dissection or pulmonary embolus. Pericardial effusion. Colonic diverticulosis. Electronically Signed: Porsche Herrera MD at 16:43 EDT , Echocardiogram 03/09/24 19:34 Interpretation Summary The estimated ejection fraction is 70 %. No evidence for diastolic dysfunction. Trivial aortic valve insufficiency. Moderate pericardial effusion. Echodensity in the pericardial effusion is suggestive of hemorrhagic effusion Ordering Physician: Jose Baca Referring Physician: David Brown Performed By: Makayla Taylor, PRICILLA Initial EKG: Attestation: I personally reviewed and interpreted this EKG as follows: (Normal sinus rhythm heart rate 94. Low voltage. Borderline EKG. Unchanged from prior EKG several hours earlier.)
--- NOTE | 2024-03-10 15:20 | CASEMGMT ---
Met with patient to complete EVERETT form. EV[employer]ETT form explained to patient who voiced understanding and signed form. Original form placed in pt?s chart and copy provided to patient. Jacquie Hopper, Discharge Planning Asst
--- NOTE | 2024-03-10 15:24 | PCM.TXEXTCAR ---
Diet Diet Order/Speech Therapy: 03/09/24 19:34 Diet: Regular - General Food consistency:: Regular Liquid Consistency:: Regular/Thin Routine Orders/Code Status Suppository Type: Dulcolax 10mg Suppository Frequency: Daily PRN Therapies Extremity Affected:: Bilateral Lower Physical Therapy: Eval and Treat Occupational Therapy: Eval and Treat Speech Therapy: Eval and Treat Problem/Diagnosis (1) Chest pain: Status: Acute Code(s): R07.9 - Chest pain, unspecified Plan 68-year-old female was admitted with chest pain, 10/10 intensity started on day of admission with radiation to back. Admitted from SNF through ED. 1. Atypical chest pain, unclear etiology ? Unclear as to the etiology at this time however CTA demonstrates pericardial effusion, 13 mm ? EKG is nonischemic with negative delta troponin though there is family history of heart disease. ? 2D echo reported pericardial effusion but no tamponade features. Junior Software Developer consulted. He discussed with other hedis coordinator who does not think patient had hemorrhagic pericardial effusion as cannot say from increased density. Patient on Xarelto which is discontinued. Did not have rheumatological disease. ? An ESR is 3. 2. 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 Xarelto discontinued 3. Schizoaffective disorder bipolar type with history of hallucinations ? She is on amitriptyline as well as BuSpar ? She also thought that she may have been on Seroquel ? She does have a very flat affect which given her past psychiatric issues is likely medication related DVT: B/L SCD Allergies/Procedures Done in Hospital Allergies acetaminophen (From Vicodin) Allergy (Verified 03/09/24 13:53) Other hypotension hydrocodone (From Vicodin) Allergy (Verified 03/09/24 13:53) Other hypotension lidocaine Allergy (Verified 03/09/24 13:53) Hives meperidine (From Demerol) Allergy (Verified 03/09/24 13:52) Hives Opioids - Morphine Analogues Allergy (Verified 03/09/24 13:53) Chest tightness Type of Care/Length of Stay Estimated LOS: Convalescent Care Less Than 30 days Type of Care Needed: Skilled Rehab Potential: Good Prognosis: Good Additional Orders/Day of Discharge Day of Discharge: 03/10/24 Dietary and Speech Recommendations Dietitian Recommendations/Changes: Will continue liberalized regular diet with consistency/texture as per [employer]FFIC [employer]ING. Will continue 120mL ensure plus HP 4 times per day w/ medpass. Monitor blood glucose level and restrict dietary carbohydrate as needed. Trend weights closely and adjust ONS as needed to optimize nutrition and prevent energy/pro depletion. Discharge Plan Admission Admit Date/Time: 03/09/24 17:54 Primary Reason for Your Visit: Atypical chest pain probably musculoskeletal Attending Provider: Eduardo Temple Primary [facility] [employer] [facility] Providers: Jose Baca; Xu He Instructions Additional Instructions / Restrictions: Advised follow-up with cleat layer Dr. Xu He in 6 weeks with with limited echo after 4 weeks Discharge Orders/Prescriptions Prescriptions: New sennosides-docusate sodium [Stimulant Laxative Plus] 8.6-50 mg Tablet 2 tab PO BID Qty: 0 0RF Continued ropinirole 3 mg tablet 3 mg PO QHS amitriptyline 50 mg tablet 50 - 100 mg PO QHS buspirone 10 mg tablet 10 mg PO BID Discontinued Xarelto 20 mg tablet 20 mg PO QPM Ref[facility] Follow [facility]Other[facility] Jamila Castellon MD [Med Staff - Call Worker Person] - Xu He MD [Med Staff - Active Staff] - (Follow-up in 6 weeks.) Disposition Disposition (needs filled in before D/C Order can be placed): [facility]
--- NOTE | 2024-03-10 15:28 | DS.PCM_ITS ---
Providers Date of Admission: 03/09/24 Date of Discharge: 03/10/24 Primary Care Physician: , Formerly [facility], [facility]–1983 Consultations 03/10/24 12:40 Consult: Cardiology Routine Consulting Provider: Xu He Reason for Consult: pericardial effusion with chest pain EMERGENT Consult: No MD Notified: Yes Date Notified: 03/10/24 Time Notified: 12:35 Method of Notification: Verbal Reason For Visit: CHEST PAIN Diagnosis Discharge Diagnosis (1) Chest pain: Status: Acute Code(s): R07.9 - Chest pain, unspecified Qualifiers: Chest pain type: unspecified Qualified Code(s): R07.9 - Chest pain, unspecified (2) Pericardial effusion: Status: Acute Code(s): I31.39 - Other pericardial effusion (noninflammatory) Plan 68-year-old female was admitted with chest pain, 10/10 intensity started on day of admission with radiation to back. Admitted from SNF through ED. 1. Atypical chest pain, unclear etiology, noncardiac in origin possible musculoskeletal/pleuritic/conversion somatic disorder ? Unclear as to the etiology at this time however CTA demonstrates pericardial effusion, 13 mm ? EKG is nonischemic with negative delta troponin though there is family history of heart disease. ? 2D echo reported pericardial effusion but no tamponade features. [employer] consulted. He discussed with other arboreal scientist who does not think patient had hemorrhagic pericardial effusion as cannot say from increased density. Patient on Xarelto which is discontinued. Did not have rheumatological disease. ? An ESR is 3. Patient was seen by Dr. Xu He. At 1 time she complained of dysphagia too. He suggested discharge home and follow-up in 6 weeks in cardiology office with him after limited echo in 4 weeks. About couple months ago patient was in 3 to 4 weeks in [facility] and had multiple investigation even cardiac cath but no significant diagnosis. 2. 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 The doctor was started retired and patient never followed. ? Xarelto discontinued. Patient was educated about look for unilateral leg swelling and follow-up immediately with PCP or ED. 3. Schizoaffective disorder bipolar type with history of visual and auditory hallucinations ? She is on amitriptyline as well as BuSpar ? She also thought that she may have been on Seroquel ? She does have a very flat affect which given her past psychiatric issues is likely medication related Mild oropharyngeal dysphagia: Patient was evaluated by speech therapist recommended one-to-one distant supervision with small bites sips and slow rate with alternate bite and sips DVT: B/L SCD Medications at Discharge Home Medications amitriptyline 50 mg tablet 50 - 100 mg PO QHS 03/09/24 buspirone 10 mg tablet 10 mg PO BID anxiety 03/09/24 ropinirole 3 mg tablet 3 mg PO QHS 03/09/24 sennosides 8.6 mg-docusate sodium 50 mg tablet (Stimulant Laxative Plus) 2 tab PO BID #0 tabs 03/10/24 Physical Exam Narrative Seen and examined. Patient has multiple complaints including chest pain ongoing constant for 2 weeks and 1 time see mention about dysphagia. Physical exam General: Alert, Oriented x3, Cooperative HEENT: Atraumatic, PERRLA, EOMI, Normocephalic Oral: No Gingival or Mucosal Lesions/ Ulcerations Neck: Supple, No JVD, Negative Carotid Bruits Chest wall/Lungs: No reproducible tenderness. Air entry diminished in bilateral lung bases. No crepitation/rhonchi Cardiovascular: Regular rate, Regular Rhythm, Normal S1, Normal S2, No M/G/R Abdomen: Bowel Sounds Present, Soft, Non Tender, Non-Distended : No dysuria. No renal angle tenderness. No suprapubic tenderness. Extremities: No edema, Capillary Refill Less than 3 Seconds Skin: No rashes, No breakdown Musculoskeletal: No Tenderness to Palpation of Joints or Extremities Neurological: Cranial nerves II-XII grossly intact, DTR 2+/4. No acute focal neurological deficit. Psych/Mental Status: Flat affect. No expression of tenderness. Weight / BMI Weight Weight: 139 lb 5.314 oz Body Mass Index (BMI) 21.8 ABG / Lab / Microbiology Data 03/10/24 09:15 03/10/24 09:15 Laboratory: Laboratory Results - last 24 hr 03/09/24 15:10: ESR Cancelled, Sodium 140, Potassium 4.1, Chloride 109 H, Carbon Dioxide 25.0, Anion Gap 6, BUN 17, Creatinine 1.08 H, Estim Creat Clear Calc 49.83, Est GFR (MDRD) Af Amer 65, Est GFR (MDRD) Non-Af 54 L, BUN/Creatinine Ratio 15.7, Glucose 158 H, Calcium 9.1, Troponin I High Sens 4, B-Natriuretic Peptide 21.0 03/09/24 15:40: PT 25.4 H, INR 2.3, APTT 33.2, D-Dimer Quant (PE/DVT) 0.33 03/09/24 17:30: Troponin I High Sens 4 03/09/24 17:45: ESR 3 03/09/24 23:50: Troponin I High Sens 5 03/10/24 09:15: WBC 6.7, RBC 4.41, Hgb 12.3, Hct 37.9, MCV 85.9, MCH 27.9, MCHC 32.5, RDW Std Deviation 45.0 H, RDW Coeff of Reinaldo 14.2, Plt Count 225, MPV 8.6, Immature Gran % (Auto) 0.300, Neut % (Auto) 71.1 H, Lymph % (Auto) 20.8, [place] % (Auto) 4.5, Eos % (Auto) 2.4, Baso % (Auto) 0.9, Absolute Neuts (auto) 4.7, Absolute Lymphs (auto) 1.38, Nucleated RBC % 0, Sodium 141, Potassium 3.7, C hloride 110 H, Carbon Dioxide 24.0, Anion Gap 7, BUN 12, Creatinine 0.93, Estim Creat Clear Calc 57.86, Est GFR (MDRD) Af Amer 78, Est GFR (MDRD) Non-Af 64, BUN/Creatinine Ratio 12.9, Glucose 119 H, Calcium 8.9 Radiography Diagnostic Testing: Radiology Impression Chest X-Ray 03/09/24 15:15 IMPRESSION: No radiographic evidence of acute cardiopulmonary disease. Electronically Signed: Thom Scott MD at 15:29 EDT , Chest/Abdomen/Pelvis CTA 03/09/24 16:03 IMPRESSION: No evidence of an aortic dissection or pulmonary embolus. Pericardial effusion. Colonic diverticulosis. Electronically Signed: Porsche Herrera MD at 16:43 EDT , Echocardiogram 03/09/24 19:34 Interpretation Summary The estimated ejection fraction is 70 %. No evidence for diastolic dysfunction. Trivial aortic valve insufficiency. Moderate pericardial effusion. Echodensity in the pericardial effusion is suggestive of hemorrhagic effusion Ordering Physician: Jose Baca Referring Physician: David Brown Performed By: Makayla Taylor RDCS Meaningful Use Info Meaningful Use Meaningful Use Diagnoses (Choose all that apply): None applicable Ischemic Stroke Statin Dosing Therapy Reference: STATIN DOSE THERAPY REFERENCE: * Patients > 75 years receive moderate or high dose statin therapy. * Patients 75 years or YOUNGER should receive HIGH intensity statin dose unless contraindicated. You will be required to document reason for non-treatment if statin daily dose does not meet guidelines. HIGH DOSE STATIN THERAPY DAILY Atorvastatin > than or = to 40 mg Rosuvastatin > than or = to 20 mg Amlodipine + Atorvastatin > than or = to 2.5/40 mg Ezetimibe + Simvastatin 10/80 mg Simvastatin 80mg Discharge Plan Admission Admit Date/Time: 03/09/24 17:54 Primary Reason for Your Visit: Atypical chest pain probably musculoskeletal Attending Provider: Eduardo Temple Primary Care Provider: [facility], [facility] Consulting Providers: Jose Baca; Xu He Instructions Additional Instructions / Restrictions: Advised follow-up with post graduate internship Dr. Xu He in 6 weeks with with limited echo after 4 weeks Discharge Orders/Prescriptions Prescriptions: New sennosides-docusate sodium [Stimulant Laxative Plus] 8.6-50 mg Tablet 2 tab PO BID Qty: 0 0RF Continued ropinirole 3 mg tablet 3 mg PO QHS amitriptyline 50 mg tablet 50 - 100 mg PO QHS buspirone 10 mg tablet 10 mg PO BID Discontinued Xarelto 20 mg tablet 20 mg PO QPM Referrals / Follow Up: [facility] [Other] Jamila Castellon MD [Med Staff - Cascade Operator] - Xu He MD [Med Staff - Active Staff] - (Follow-up in 6 weeks.) Disposition Disposition (needs filled in before D/C Order can be placed): Intermediate Facility Charges/Coding Visit Charges Inpatient E&M: 30383 Disch Hosp >30min
--- NOTE | 2024-03-10 15:33 | CASEMGMT ---
Addendum entered by Kaylie Borrego 03/10/24 16:07: TAM received a phone call from Bren the distance learning administrator at [facility]. Bren said the patient does this all the time and the plan is for her to return. Bren said they did not have a phone number for the daughter. However, TAM was able to obtain a phone number for patient's daughter Rabia ([phone]). TAM called Rabia and introduced self and role at [facility]. Rabia said patient does this every time she goes to the hospital. The plan is for patient to go back to [facility]. SW thanked her. TAM asked Jacquie d/c manager transportation planning to set up transport. Plan: d/c back to [facility] under intermediate level of care. Physicians will transport patient. Kaylie DURAN Original Note: Patient is now saying she is not going back to [facility]. Patient said she is going home with her daughter and everything has been set up. SW asked if she has a phone number for her daughter and patient said she does not know it by heart, but [facility] should have it. TAM called [facility] admissions and left a voice mail and social service liaison and left a voice mail. TAM then called the nurses station where patient came from and they transferred social work to the social service liaison's office which again went to voice mail. Kaylie DURAN
--- NOTE | 2024-03-10 16:06 | CASEMGMT ---
Discharge Planning Discharge orders, signed med list, and transport time faxed to [facility]. Physicians will transport patient by cot at 7p. Nursing and SW updated. Jacquie Hopper DC Planning Asst.
[2024-03-10 17:42] VITALS: BP 168/93; PULSE 85; RESP 18; TEMP 36.1; O2SAT 97
[2024-03-10 18:20] VITALS: PULSE 91
[2024-03-10] MEDS: hydrALAZINE 20 MG/ML Vial 5 MG IV (18:20)
[2024-03-10] MEDS: 0.9% Saline Lock 10 ML Syringe IV (18:21)
[2024-03-10 19:25] VITALS: BP 159/85; PULSE 93; RESP 16; O2SAT 95
--- NOTE | 2024-03-10 19:54 | NURSING ---
report called to ameena chen
== END 2024-03-10 15:26 | disposition intermediate care facility (04) ==
LOC: ED 17:48 → PCU 21:45
PROVIDERS: Internal Medicine; Admitting Provider Family Medicine; Emergency Provider Surgery; Referring Provider Surgery; Visit Provider Internal Medicine
DX: R07.89 Other chest pain (principal); F25.0 Schizoaffective disorder, bipolar type; I31.39 Other pericardial effusion (noninflammatory); Z86.718 Personal history of other venous thrombosis and embolism; E78.5 Hyperlipidemia, unspecified; D64.9 Anemia, unspecified; I25.10 Atherosclerotic heart disease of native coronary artery without angina pectoris; N28.9 Disorder of kidney and ureter, unspecified; Z79.01 Long term (current) use of anticoagulants; K21.9 Gastro-esophageal reflux disease without esophagitis; R06.02 Shortness of breath; F41.9 Anxiety disorder, unspecified; Z79.899 Other long term (current) drug therapy; Z86.711 Personal history of pulmonary embolism; R13.12 Dysphagia, oropharyngeal phase; Z23 Encounter for immunization
CPT/HCPCS: 36415; 71045; 71275; 74174; 80048; 83880; 84484; 85025; 85379; 85610; 85652; 85730; 90662; 92526; 93005; 93306; 96361; 96372; 96374; 96375; 96376; 99221; 99284; J7030; Q9967; A4216; G0378; J2405

== ENCOUNTER 2024-05-09 17:09 | Emergency (ER) | payer MEDICARE, MEDICAID, SELFPAY ==
[2024-05-09 17:12] VITALS: BP 134/78; PULSE 64; RESP 16; TEMP 36.6; O2SAT 98; BMI 19.7
--- NOTE | 2024-05-09 17:24 | EX.ED.VIS.PS ---
HPI HPI - Psych History of Present Illness Chief Complaint: Mental Health Informant: patient, EMS and SNF Narrative Narrative: 68-year-old female is in a assisted after having surgery for an infection in her neck, she has a PICC line with antibiotics that are scheduled to be given through June 09, and she has a PEG and is n.p.o. because of the surgery. She had a virtual evaluation from a psychologist today who pink slipped her because she was having suicidal thoughts and suicide ideation and possible attempt when she was attempting to pull the PICC line out. Also documented that she has auditory hallucinations which she denies right now, and she denies being suicidal, saying those are all lies. She states that she was just pulling at the tape for PICC line because it is uncomfortable and they are not using it anyway. The patient states that Tarik Galeana is her and that her [id number] is Kike Desai. PFSH PFS Medical History Hyperlipidemia Muscle weakness Depression Atherosclerotic heart disease of [place] coronary artery without angina pectoris Auditory hallucination Visual hallucination Schizoaffective disorder, bipolar type Psychotic disorder Anxiety GERD (gastroesophageal reflux disease) Home Medications ?Medication ?Instructions ?Recorded ?Last Taken ?Type buspirone 10 mg tablet 10 mg PO BID anxiety 03/09/24 03/09/24 History acetaminophen 500 mg capsule 1,000 mg PO Q12H PRN fever or pain 05/09/24 Unknown History alteplase 2 mg intra-catheter 2 mg intra-catheter PRN SLUGGISH 05/09/24 Unknown History solution (Cathflo Activase) LINES atorvastatin 10 mg tablet 5 mg PO QHS HYPERLIPIDEMIA 05/09/24 Unknown History bisacodyl 10 mg rectal suppository 10 mg PA DAILY PRN constipation 05/09/24 Unknown History ceftriaxone 10 gram solution for 2 g IV Q24H WOUND INFUSE 05/09/24 Unknown History injection clotrimazole 1 % vaginal cream 1 appful vaginal QHS YEAST 05/09/24 Unknown History INFECTION cyclobenzaprine 5 mg tablet 5 mg PO QHS PRN muscle spasm 05/09/24 Unknown History folic acid 1 mg tablet 1 mg PO DAILY SUPPLEMENT 05/09/24 Unknown History guaifenesin 600 mg tablet, 600 mg PO Q12H PRN cough 05/09/24 Unknown History extended release 12 hr heparin lock flush (porcine) 10 5 unit IV DAILY PICC 05/09/24 Unknown History unit/mL intravenous solution hydroxyzine pamoate 25 mg capsule 25 mg PO DAILY anxiety 05/09/24 Unknown History magnesium hydroxide 400 mg/5 mL 30 ml PO DAILY PRN constipation 05/09/24 Unknown History oral suspension (Milk of Magnesia) melatonin 10 mg capsule 10 mg PO QHS 05/09/24 Unknown History menthol 10 % topical cream 1 applic topical Q12H PRN pain 05/09/24 Unknown History (Biofreeze (menthol)) nitroglycerin 0.4 mg sublingual 0.4 mg sublingual Q5M PRN chest 05/09/24 Unknown History tablet pain ondansetron HCl 4 mg tablet 4 mg PO Q6H PRN nausea and vomiting 05/09/24 Unknown History pantoprazole 40 mg tablet,delayed 40 mg PO DAILY GERD 05/09/24 Unknown History release polyethylene glycol 3350 17 17 g PO BID PRN constipation 05/09/24 Unknown History gram/dose oral powder (ClearLax) quetiapine 100 mg tablet 100 mg PO DAILY BIPOLAR 05/09/24 Unknown History quetiapine 200 mg tablet 200 mg PO QHS INSOMNIA 05/09/24 Unknown History quetiapine 25 mg tablet 25 mg PO DAILY BIPOLAR 05/09/24 Unknown History risperidone 0.5 mg tablet 0.5 mg PO BID SCHIZOPHRENIA 05/09/24 Unknown History risperidone 1 mg tablet 1 mg PO BID SCHIZOPHRENIA 05/09/24 Unknown History ropinirole 4 mg tablet 4 mg PO QHS RESTLESS LEG 05/09/24 Unknown History sennosides 8.6 mg-docusate sodium 2 tab-cap PO BID PRN constipation 05/09/24 Unknown History 50 mg capsule (Senna Plus) sodium chloride 0.9 % (flush) 10 ml IV DAILY 05/09/24 Unknown History sodium phosphates 19 gram-7 118 ml PA DAILY PRN constipation 05/09/24 Unknown History gram/118 mL enema (Fleet Enema) thiamine HCl (vitamin B1) 100 mg 100 mg PO DAILY SUPPLEMENT 05/09/24 Unknown History tablet tizanidine 6 mg capsule 6 mg PO Q12H PRN muscle spasticity 05/09/24 Unknown History Allergy/AdvReac Type Severity Reaction Status Date / Time acetaminophen (From Vicodin) Allergy Other Verified 05/09/24 17:12 hydrocodone (From Vicodin) Allergy Other Verified 05/09/24 17:12 lidocaine Allergy Hives Verified 05/09/24 17:12 meperidine (From Demerol) Allergy Hives Verified 05/09/24 17:12 Opioids - Morphine Analogues Allergy Chest Verified 05/09/24 17:12 tightness Family History Other Heart disease Social History Smoking Status: Never smoker ROS ROS ED Constitutional Constitutional ED: Denies chills or fever(s) Eyes Eyes: Denies change in vision or diplopia ENT ENT ED: Denies rhinorrhea or sore throat Cardiovascular Cardiovascular: Denies chest pain or palpitations Respiratory/Chest Respiratory/Chest: Denies cough or dyspnea Gastrointestinal Gastrointestinal: Reports abdominal pain and nausea; Denies diarrhea or vomiting Genitourinary Genitourinary ED: Denies dysuria or hematuria Musculoskeletal Musculoskeletal: Denies back pain or neck pain Integumentary Denies abscess or rash Neurologic Neurologic: Denies headache(s), paresthesias or weakness Psychiatric Psychiatric: Reports other Details: See HPI. Patient denies. EXAM Physical Exam Const Vital Signs: 05/09/24 17:12 Temperature 97.8 F Temperature Source Oral Pulse Rate 64 Respiratory Rate 16 Blood Pressure 134/78 H Blood Pressure Mean 96 Pulse Ox 98 Oxygen Delivery Method Room Air Positive well nourished and well developed General Appearance ED: well developed and NAD HEENT Reports moist mucous membranes normocephalic and atraumatic Eyes PERRL and EOMs intact bilaterally Neck full ROM and supple Neck Narrative: Operative anterolateral left neck incision with Steri-Strips benign appearing without any discharge signs of cellulitis or tenderness. Resp normal respiratory effort and clear to auscultation bilaterally Cardio regular rate, regular rhythm and no murmurs GI non-distended GI Narrative: Mild subjective tenderness left lower quadrant no guarding or rebound or other areas of tenderness. PEG site benign. Auscultation: normoactive bowel sounds Palpation: soft Back/Spine no CVA tenderness General Back: other FROM Extremity normal to inspection General Extremety ED: Negative for edema, pulses abnormal or tenderness General Extremity: Negative for edema or pulses abnormal Neuro oriented x3, CN's II-XII intact bilaterally and no sensory deficits noted Sensorium / Orientation: awake and alert Motor Exam: strength 5/5 throughout Psych cooperative, denies hallucinations, denies homicidal ideation and denies suicidal ideation Psych Narrative: Flat affect, however at times labile and accusatory, stating randomly well you think everything I have been through is a hoax anyway. Skin no rashes or lesions noted and no wounds MDM MDM MDM Narrative Medical decision making narrative: Labs obtained and noted. Patient is medically cleared for psychiatric evaluation. She has very slight elevations of AST, ALT, alkaline phosphatase but she is not having any pain or tenderness in her upper abdomen or signs of cholangitis. She does not have a fever or an elevated white blood count where she jaundiced or have hyperbilirubinemia. She has had some constipation I believe her left lower quadrant pain is probably related. Since she does not have a leukocytosis I do not think she needs a CT of the abdomen/pelvis right now although was considered. Discussed with social work. Apparently she is coming from a locked psychiatric unit, so it is unclear why she was pink slipped here to the ER. Social work attempted to discuss with staff at the assisted but they were able to obtain limited information. They talked with 6 different facilities, all of which refused the patient given her PEG and PEG, however there was 1 that would consider it but even if they were to accept the patient they do not have an available bed for at least 3 days. For these reasons and since the patient is already on a locked psychiatric unit with medical capabilities, I see no reason to transfer her back there at this time. She was given some dicyclomine for her mild left lower quadrant discomfort. Lab Data Attestation: I reviewed the patient's lab results. Labs: Laboratory Results - last 24 hr 05/09/24 05/09/24 17:56 18:12 WBC 9.0 RBC 3.63 L Hgb 10.4 L Hct 32.1 L MCV 88.4 MCH 28.7 MCHC 32.4 RDW Std Deviation 48.7 H RDW Coeff of Reinaldo 15.3 H Plt Count 348 MPV 8.5 Immature Gran % (Auto) 0.800 Neut % (Auto) 73.7 H Lymph % (Auto) 18.6 L [place] % (Auto) 5.3 Eos % (Auto) 1.3 Baso % (Auto) 0.3 Absolute Neuts (auto) 6.6 Absolute Lymphs (auto) 1.68 Nucleated RBC % 0 Sodium 143 Potassium 3.5 Chloride 109 H Carbon Dioxide 29.0 Anion Gap 4 L BUN 12 Creatinine 0.66 Estim Creat Clear Calc 62.46 Est GFR (MDRD) Af Amer 116 Est GFR (MDRD) Non-Af 96 BUN/Creatinine Ratio 18.2 Glucose 134 H Calcium 8.8 Total Bilirubin 0.20 AST 125 H ALT 93 H Alkaline Phosphatase 163 H Total Protein 6.7 Albumin 2.7 L Globulin 4.0 Albumin/Globulin Ratio 0.7 L TSH 1.940 Urine Color Yellow Urine Clarity Clear Urine pH 7.0 Ur Specific [place] 1.010 Urine Protein Negative Urine Glucose (UA) Normal Urine Ketones Negative Urine Occult Blood Negative Urine Nitrite Negative Urine Bilirubin Negative Urine Urobilinogen Normal Ur Leukocyte Esterase 100 H Urine RBC 0 SEEN Urine WBC 0-5 SEEN Ur Squamous Epith Cells 0-5 SEEN Urine Bacteria 1+ Urine Mucus 0 SEEN Urine Opiates Screen NEGATIVE Urine Methadone Screen NEGATIVE Ur Barbiturates Screen NEGATIVE Ur Phencyclidine Scrn NEGATIVE Ur Amphetamines Screen NEGATIVE MDMA (Ecstasy) Screen NEGATIVE U Benzodiazepines Scrn NEGATIVE Urine Cocaine Screen NEGATIVE U Cannabinoids Screen NEGATIVE Ur Drug Screen Comment Ethyl Alcohol 4.0 Rhythm Strip Rhythm Strip: Sinus Rhythm Rate: 65 Ectopy: None Management Discussion w/another healthcare provider: mold release worker/Case management Discharge Plan Triage Chief Complaint: Mental Health ED Provider: Brannon Baker Dx/Rx/DC Orders Clinical Impression: Suicide ideation, Psychotic disorder Prescriptions: No Action buspirone 10 mg tablet 10 mg PO BID acetaminophen 500 mg capsule 1,000 mg PO Q12H PRN (Reason: fever or pain) atorvastatin 10 mg tablet 5 mg PO QHS Biofreeze (menthol) 10 % cream 1 applic topical Q12H PRN (Reason: pain) bisacodyl 10 mg suppository 10 mg PA DAILY PRN (Reason: constipation) Cathflo Activase 2 mg recon soln 2 mg INTRA-CATHETER PRN Patient Comments: [NO ORIGINAL SIG] ceftriaxone 10 gram recon soln 2 g IV Q24H Patient Comments: [NO ORIGINAL SIG] clotrimazole 1 % cream 1 appful vaginal QHS Rx Instructions: X7D END DATE 05/16/24 cyclobenzaprine 5 mg tablet 5 mg PO QHS PRN (Reason: muscle spasm) folic acid 1 mg tablet 1 mg PO DAILY guaifenesin 600 mg tablet extended release 12hr 600 mg PO Q12H PRN (Reason: cough) heparin lock flush (porcine) 10 unit/mL solution 5 unit IV DAILY hydroxyzine pamoate 25 mg capsule 25 mg PO DAILY melatonin 10 mg capsule 10 mg PO QHS magnesium hydroxide [Milk of Magnesia] 400 mg/5 mL suspension 30 ml PO DAILY PRN (Reason: constipation) polyethylene glycol 3350 [ClearLax] 17 gram/dose powder 17 g PO BID PRN (Reason: constipation) nitroglycerin 0.4 mg tablet, sublingual 0.4 mg sublingual Q5M PRN (Reason: chest pain) ondansetron HCl 4 mg tablet 4 mg PO Q6H PRN (Reason: nausea and vomiting) pantoprazole 40 mg tablet,delayed release (DR/EC) 40 mg PO DAILY quetiapine 100 mg tablet 100 mg PO DAILY Patient Comments: GIVE WITH 25MG TAB FOR TOTAL DAILY DOSE OF 125MG quetiapine 25 mg tablet 25 mg PO DAILY Patient Comments: GIVE WITH 25MG TAB FOR TOTAL DAILY DOSE OF 125MG quetiapine 200 mg tablet 200 mg PO QHS risperidone 0.5 mg tablet 0.5 mg PO BID risperidone 1 mg tablet 1 mg PO BID ropinirole 4 mg tablet 4 mg PO QHS Rx Instructions: administer 1-3 hours before bedtime Senna Plus 8.6-50 mg capsule 2 tab-cap PO BID PRN (Reason: constipation) sodium chloride 0.9 % (flush) Syringe 10 ml IV DAILY Rx Instructions: administer before and after IV drug administration as part of [facility] protocol Fleet Enema 19-7 gram/118 mL enema 118 ml PA DAILY PRN (Reason: constipation) thiamine HCl (vitamin B1) 100 mg tablet 100 mg PO DAILY tizanidine 6 mg capsule 6 mg PO Q12H PRN (Reason: muscle spasticity) Primary Care Provider: Kayla Thomas Referrals: Kayla Thomas MD [Primary Care Provider] - Activity Restrictions/Additional Instructions: Received quetiapine, buspirone, hydroxyzine, and a dose of dicyclomine in the emergency department. Print Language: [place] Disposition Disposition: Home, Self Care
[2024-05-09] MEDS: Ondansetron 4 MG/2 ML Vial IV (17:55)
[2024-05-09 18:12] LABS: Absolute Lymphocyte Count 1.68 X10^3/uL (0.83-4.51); Absolute Neutrophil Count 6.6 X10^3/uL (2.0-7.7); Basophil# 0.03 X10^3/uL; Basophil% 0.3 % (0-1); Eosinophil# 0.12 X10^3/uL; Eosinophils% 1.3 % (0-5); Hematocrit 32.1 % (37-47); Hemoglobin 10.4 g/dL (12.0-15.0); Lymphocyte # 1.68 X10^3/ul (0.83-4.51); Lymphocyte % 18.6 % (19-41); Mean Corp Hgb Conc 32.4 g/dL (32-36); Mean Corpuscular Hgb 28.7 pg (27.0-32.0); Mean Corpuscular Volume 88.4 fL (81-99); Mean Platelet Vol. 8.5 fl (6.2-12.0); Monocyte# 0.48 X10^3/uL; Monocyte% 5.3 % (0-10); NRBC Flagged by Analyzer 0 % (0-5); Neutrophil # 6.63 X10^3/uL (2.7-7.7); Neutrophil % 73.7 % (47-70); Platelet Count 348 K/mm3 (150-450); RBC Distribution Width CV 15.3 % (11.6-14.6); RBC Distribution Width SD 48.7 fl (35.1-43.9); Red Blood Count 3.63 M/mm3 (4.2-5.4)
[2024-05-09 18:21] LABS: Mucous, Urine 0 SEEN /hpf (<or=2+); Red Blood Cells-Urine 0 SEEN /hpf (0-5)
[2024-05-09 18:25] LABS: Color, Urine Yellow (Yellow); Glucose, Dipstick Normal (Normal); Ketone-Dipstick Negative (Negative); Leukocyte Esterase-Dipstick 100 /ul (Negative); Nitrite-Dipstick Negative (Negative); Occult Blood-Urine Negative /ul (Negative); Protein-Dipstick Negative (Negative); Urine Bilirubin Dipstick Negative (Negative); Urine Clarity Clear (Clear); Urine Urobilinogen Normal (Normal)
[2024-05-09 18:37] LABS: ALB/GLOB Ratio 0.7 RATIO (0.9-2.4); AST(SGOT) 125 U/L (15-37); Alanine Aminotransfer ALT/SGPT 93 U/L (13-56); Albumin, Serum 2.7 g/dL (3.2-5.0); Alkaline Phosphatase 163 U/L (45-117); Anion Gap 4 (5-15); BUN 12 mg/dL (7-18); BUN/Creat Ratio 18.2 RATIO (10-20); Calcium,Total 8.8 mg/dL (8.5-10.1); Chloride 109 mmol/L (98-107); Creatinine, Serum 0.66 mg/dL (0.55-1.02); EST Glomerular Filtration Rate 96 mL/min (>60); Est Glom Filt Rate - Afr Amer 116 mL/min (>60); Estimated Creatinine Clearance 62.46 ml/min; Glucose 134 mg/dL (74-106); Potassium 3.5 mmol/L (3.5-5.1); Protein, Total 6.7 g/dL (6.4-8.2); Sodium Level 143 mmol/L (136-145)
[2024-05-09 18:39] LABS: Amphetamine Urine VISTA NEGATIVE (<1000 ng/mL); Barbiturate Urine VISTA NEGATIVE (< 200 ng/mL); Benzodiazepine Urine VISTA NEGATIVE (< 200 ng/mL); Cocaine Urine VISTA NEGATIVE (< 300 ng/mL); Ecstacy Urine VISTA NEGATIVE (< 500 ng/mL); Methadone Urine VISTA NEGATIVE (< 300 ng/mL); PCP Urine VISTA NEGATIVE (< 25 ng/mL); THC Urine VISTA NEGATIVE (< 50 ng/mL); Vista UDS pH Range 6
[2024-05-09 18:44] LABS: Squamous Epithelial Cells - UA 0-5 SEEN /hpf (5-10); White Blood Cells 0-5 SEEN /hpf (0-5)
[2024-05-09 18:45] LABS: Bacteria 1+ /hpf (None Seen)
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
--- NOTE | 2024-05-09 20:19 | ED.RN ---
Per pharmacy, Bentyl capsules can be opened to be given to patient via PEG
--- NOTE | 2024-05-09 20:53 | CM.ED ---
Social Work Patient was sent to ER with pink slip from [facility] attempted to find inpatient psychiatric facility that would be able to accommodate picc line and peg tube. [facility], [facility], [facility], [facility], and [facility] all stated they were unable to accept. [facility] stated they would be willing to consider referral but they would not have a bed available until . Spoke with Dr. Baker to update, patient will be sent back to [facility]. TAM to room and updated patient on plan to return, patient stated whatever and nothing is ever going to change regarding her living situation. Patient remains calm and controlled about news of returning to SNF. Patient continues to deny thoughts or plans of suicide. 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
[2024-05-09] MEDS: Dicyclomine 10 MG Capsule 20 MG PO (20:57)
[2024-05-09] MEDS: QUEtiapine 100 MG Tablet 200 MG PO (20:58)
[2024-05-09] MEDS: busPIRone 5 MG Tablet 10 MG PO (20:59)
--- NOTE | 2024-05-09 21:23 | CM.ED ---
Social Work Daughter Rabia notified of intended plan for patient to return to [facility], and barriers to inpatient psych at this time. Daughter mentioned feeling that [facility] is doing a great job with patient and feels the SNF is the best place for patient. Daughter asked if patient can be prescribed medication to help supplement things until regular psychotropics kick in. Informed that can put request in to doctor in ED, though this may just be for this evening, and BH providers at the SNF would need to weigh in on management of medications at the SNF. Let daughter know patient has remained calm during ED stay, and did not become agitated or combative when told of impending return to the SNF. Daughter reports to be working on grief counselor to come into the SNF to start working with patient about loss of patient's mother earlier this year. Updated realty specialist to daughter's request about medication. RN to talk with provider. Plan: Return to [facility]. -RAYA Jones
[2024-05-09] MEDS: Acetaminophen 650 MG/20 ML UDC GT (23:00)
[2024-05-09] MEDS: hydrOXYzine PAM 25 MG Capsule 50 MG PO (23:01)
[2024-05-09 23:57] VITALS: BP 134/78; PULSE 64; RESP 16; TEMP 36.6; O2SAT 98
[2024-05-10] MEDS: Ketorolac 30 MG/ML Syringe 15 MG IV (00:16)
--- NOTE | 2024-05-10 00:26 | ED.RN ---
Report given to [facility]
== END 2024-05-10 00:26 | disposition home or self-care (01) ==
PROVIDERS: Emergency Provider Emergency Medicine; PCP Internal Medicine; Visit Provider Emergency Medicine
DX: F29 Unspecified psychosis not due to a substance or known physiological condition (principal); Z93.1 Gastrostomy status; F25.9 Schizoaffective disorder, unspecified; R45.851 Suicidal ideations; I25.10 Atherosclerotic heart disease of native coronary artery without angina pectoris; E78.5 Hyperlipidemia, unspecified; F41.9 Anxiety disorder, unspecified; Z79.899 Other long term (current) drug therapy; K21.9 Gastro-esophageal reflux disease without esophagitis; F32.A Depression, unspecified
CPT/HCPCS: 80053; 80307; 81001; 82077; 84443; 85025; 96374; 96375; 99285; A4216; J2405